=== PATIENT | female | born 2000 ===

== ENCOUNTER 2025-10-10 08:00 | Outpatient (CLI) | payer OTHER | END 2025-10-10 08:30 | disposition home or self-care (01) | LOC: EKG 08:00 → ADM 12:15 → EDSTATUS 10-18 12:15 → CIR.AMB 10-18 12:15 → EKG 11-12 14:45 | PROVIDERS: ATTEND Obstetrics & Gynecology | DX: R10.20 Pelvic and perineal pain unspecified side (principal); Z30.2 Encounter for sterilization ==